=== PATIENT | male | born 1990 | race Caucasian/White ===

== ENCOUNTER 2019-09-05 15:20 | Emergency (ER) | payer SELFPAY ==
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
[2019-09-05 15:42] VITALS: BP 114/69; PULSE 80; TEMP 98.8; BMI 27.4
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
== END 2019-09-05 16:53 | disposition home or self-care (01) ==
LOC: JERFT 15:20
DX: M54.5 Low back pain (principal); V49.59XA Passenger injured in collision with other motor vehicles in traffic accident, initial encounter; Y92.488 Other paved roadways as the place of occurrence of the external cause; Y93.89 Activity, other specified; Y99.8 Other external cause status
CPT/HCPCS: 99282-25